=== PATIENT | female | born 1960 | race African-American/Black ===

== ENCOUNTER 2018-09-15 22:49 | Inpatient (IN) | payer BC ==
[~2018-09-15] VITALS: Ht 160 cm; Wt 93.9 kg
[2018-09-16] MEDS ORDERED: MORPHINE SULFATE 4 MG/ML CPJ (NOT FOR IM USE) IV STA (00:56)
[2018-09-16] MEDS ORDERED: ONDANSETRON HCL 4MG/2ML INJ IV STA (00:56)
[2018-09-16] MEDS ORDERED: NITROGLYCERIN OINT 1GM/INCH UDPKT TD ONE (01:00)
[2018-09-16 01:19] LABS: BASOPHILS % 0.7 % (0.0-2.0); EOSINOPHILS % 1.6 % (0.0-5.0); HEMATOCRIT. 39.8 % (36.0-48.0); HEMOGLOBIN. 13.6 g/dL (12.0-16.0); LYMPHOCYTES % 34.6 % (20.0-50.0); MEAN CORPUSCULAR HEMOGLOBIN 32.3 pg (28.0-32.0); MEAN CORPUSCULAR VOLUME 94.9 fL (81.0-99.0); MEAN PLATELET VOLUME 10.4 fl (7.4-10.4); MONOCYTES % 12.6 % (2.0-8.0); NEUTROPHILS % 50.5 % (40.0-76.0); PLATELET 212 x1000/uL (130-400); RED CELL DISTRIBUTION WIDTH 14.4 % (11.6-14.6)
[2018-09-16 01:20] LABS: CHLORIDE 101 mEq/L (98-107)
[2018-09-16] MEDS ORDERED: AZITHROMYCIN 500 MG in DEXT 5% WATER 250 ML IV ONE (03:00)
[2018-09-16] MEDS ORDERED: CEFTRIAXONE 1 G PREMIX 50 ML IV ONE (03:00)
[2018-09-16] MEDS ORDERED: IOHEXOL-350 100 ML BOTTLE ONE (03:56)
[2018-09-16 08:00] VITALS: BP 96/63
[2018-09-16 08:07] VITALS: BP 96/63
[2018-09-16] MEDS ORDERED: MORPHINE SULFATE 2 MG/ML CPJ (NOT FOR IM USE) IV PRN (09:30)
[2018-09-16] MEDS: ENOXAPARIN 30MG/0.3ML SYR SUBCUT SCH ×2 (11:17→20:22)
[2018-09-16 12:00] VITALS: BP 105/61
[2018-09-16] MEDS ORDERED: IPRATROPIUM/ALBUTEROL 0.5-3(2.5)MG/3ML NEB HHN PRN (15:00)
[2018-09-16] MEDS: MONTELUKAST SODIUM 10MG TABLET PO SCH (15:44)
[2018-09-16 16:00] VITALS: BP 97/60
[2018-09-16] MEDS: IPRATROPIUM/ALBUTEROL 0.5-3(2.5)MG/3ML NEB HHN SCH ×2 (16:40→20:40)
[2018-09-16] MEDS: BUDESONIDE 0.5MG/2ML NEB HHN SCH ×2 (16:40→20:40)
[2018-09-16] MEDS: THROAT LOZENGES-BENZOCAINE/MENTH/CETYLPYRD CL LOZENGES MM PRN (17:26)
[2018-09-16 20:00] VITALS: BP 99/58
[2018-09-16] MEDS: FAMOTIDINE 20MG TABLET PO SCH (20:22)
[2018-09-17] VITALS: BP 109/60
[2018-09-17] MEDS: IPRATROPIUM/ALBUTEROL 0.5-3(2.5)MG/3ML NEB HHN SCH ×3 (01:35→13:30)
[2018-09-17 04:00] VITALS: BP 118/65
[2018-09-17 08:00] VITALS: BP 93/49
[2018-09-17] MEDS: BUDESONIDE 0.5MG/2ML NEB HHN SCH (08:00)
[2018-09-17] MEDS ORDERED: NICOTINE 21MG PATCH TD SCH (09:00)
[2018-09-17] MEDS: ENOXAPARIN 30MG/0.3ML SYR SUBCUT SCH (09:27)
[2018-09-17] MEDS: FAMOTIDINE 20MG TABLET PO SCH (09:27)
[2018-09-17 12:00] VITALS: BP 95/65
[2018-09-17] MEDS: THROAT LOZENGES-BENZOCAINE/MENTH/CETYLPYRD CL LOZENGES MM PRN (13:40)
[2018-09-17] MEDS ORDERED: LEVO500T2 MT (15:36)
[2018-09-17 16:00] VITALS: BP 107/64
[2018-09-17 17:11] VITALS: BP 107/64
[2018-09-17] MEDS: MONTELUKAST SODIUM 10MG TABLET PO SCH (17:23)
== END 2018-09-17 18:48 | disposition home or self-care (01) | DRG 917 ==
LOC: ER 22:49 → EDBD 09-16 05:06 → 5WST 09-16 05:06 → EDBEDREQTM 09-16 05:07 → EDBEDREQSVC 09-16 05:07 → EDBEDREQ 09-16 05:07 → ENRESERV 09-16 05:39
PROVIDERS: ADMIT Family Medicine; ATTEND Family Medicine
DX: T59.91XA Toxic effect of unspecified gases, fumes and vapors, accidental (unintentional), initial encounter (principal); J96.00 Acute respiratory failure, unspecified whether with hypoxia or hypercapnia; J18.9 Pneumonia, unspecified organism; J68.0 Bronchitis and pneumonitis due to chemicals, gases, fumes and vapors; J44.1 Chronic obstructive pulmonary disease with (acute) exacerbation; G62.9 Polyneuropathy, unspecified; F14.90 Cocaine use, unspecified, uncomplicated; F17.210 Nicotine dependence, cigarettes, uncomplicated; Z60.2 Problems related to living alone; R32 Unspecified urinary incontinence; J45.909 Unspecified asthma, uncomplicated; Z71.89 Other specified counseling; Y92.89 Other specified places as the place of occurrence of the external cause
CPT/HCPCS: 36415; 71045; 71275; 83605; 83880; 84145; 84484; 85379; 93005; 93306; 94640; 96374; 99285; J0456; J0696; J1650; J2270; J2405; J7060; J7620; J7626; Q9967